=== PATIENT | female | born 1940 | race African-American/Black ===

== ENCOUNTER 2016-07-12 11:24 | Emergency (ER) | payer MEDICARE, OTHER ==
[~2016-07-12] VITALS: Ht 165.1 cm; Wt 92.1 kg
[2016-07-12 11:37] VITALS: BP 145/82
[2016-07-12] MEDS ORDERED: ACETAMINOPHEN 325 MG TABLET. PO ONE (12:00)
[2016-07-12] MEDS ORDERED: AMOX1TAB61 PO (12:33)
--- NOTE | 2016-07-12 12:33 | PHYS DOC ---
Past Medical History Past Medical History: A-Fib, Diabetes-Type II, Hypertension Past Surgical History: Hysterectomy Alcohol Use: None Drug Use: None Adult General Chief Complaint Chief Complaint: EYE PROBLEMS HPI HPI Patient is a 75 year old female presents emergency department stating that she has had sinus pressure frontal and maxillary for the last 3 days. She also states that she is having some eye pain and discomfort with this. She states this is her normal symptoms when she has a sinus infection. She states that she had an infection approximately one month ago was placed on amoxicillin. Currently has a fever here in the emergency department of 101.7. She denies any nausea vomiting cough or congestion. Review of Systems Review of Systems Constitutional: fever Eyes: Denies change in visual acuity, redness, or eye pain [] HENT: nasal congestion, sinus pressure denies sore throat [] Respiratory: Denies cough or shortness of breath [] Cardiovascular: No additional information not addressed in HPI [] GI: Denies abdominal pain, nausea, vomiting, bloody stools or diarrhea [] : Denies dysuria or hematuria [] Musculoskeletal: Denies back pain or joint pain [] Integument: Denies rash or skin lesions [] Neurologic: Denies headache, focal weakness or sensory changes [] Endocrine: Denies polyuria or polydipsia [] Current Medications Current Medications Current Medications Medications (Trade) Dose Ordered Sig/Ren Start Time Stop Time Status Last Admin Dose Admin Acetaminophen (Tylenol) 650 mg 1X ONCE 07/12/16 12:00 07/12/16 12:01 DC 07/12/16 11:54 650 MG Allergies Allergies Allergies Coded Allergies Type Severity Reaction Last Updated Verified No Known Drug Allergies 11/08/15 No Physical Exam Physical Exam Constitutional: Well developed, well nourished, no acute distress, non-toxic appearance. [] HENT: Normocephalic, atraumatic, bilateral external ears normal, oropharynx moist, no oral exudates, nose normal. Bilateral tympanic membranes appear to be normal. Throat with no erythematous no redness or drainage noted. A shunt with bilateral frontal and maxillary sinus tenderness. Nares appears to be inflamed. Eyes: PERRLA, EOMI, conjunctiva normal, no discharge. [] Neck: Normal range of motion, no tenderness, supple, no stridor. [] Cardiovascular:Heart rate regular rhythm, no murmur [] Lungs & Thorax: Bilateral breath sounds clear to auscultation [] Skin: Warm, dry, no erythema, no rash. [] Back: No tenderness Extremities: No tenderness, no cyanosis, no clubbing, ROM intact, no edema. [] Neurologic: Alert and oriented X 3, normal motor function, normal sensory function, no focal deficits noted. [] Psychologic: Affect normal, judgement normal, mood normal. [] Current Patient Data Vital Signs Vital Signs Date Time Temp Pulse Resp B/P (MAP) Pulse Ox O2 Delivery O2 Flow Rate FiO2 07/12/16 11:37 101.7 106 20 94 Room Air 101.7 EKG EKG [] Radiology/Procedures Radiology/Procedures [] Course & Med Decision Making Course & Med Decision Making Pertinent Labs and Imaging studies reviewed. (See chart for details) Patient was encouraged to continue taking her Coricidin HBP for sinus congestion. She'll be placed on Augmentin. Also recommended patient to follow up with ENT if she continues to have sinus pressure and discomfort as this is her second one within the last 2 months. Patient will be discharged home in stable condition. Signs symptoms to return back to emergency department as been provided. [] Dragon Disclaimer Dragon Disclaimer This electronic medical record was generated, in whole or in part, using a voice recognition dictation system. Departure Departure Impression: Primary Impression: Sinusitis Disposition: 01 HOME, SELF-CARE Condition: STABLE Referrals: JAKOB ESPINOZA MD (PCP) Patient Instructions: Sinusitis, [id number] Additional Instructions: Activity as tolerated. Tylenol for fever chills or generalized body aches and discomfort. May also use ibuprofen. Continue using the Coricidin HBP Antibiotics as prescribed. He may also use saline nasal sprays to help with her sinus pressure and discomfort. Follow-up with ENT if he continued have sinus pressure and pain. Return back to emergency prior signs symptoms of become worse. Scripts Amoxicillin/Potassium Clav (AUGMENTIN 875-125 TABLET) 1 Each Tablet 1 TAB PO BID, #20 TAB Prov: ELIDA GRAHAM APRN 07/12/16 ELIDA GRAHAM APRN July 12, 2016 12:33
== END 2016-07-12 12:43 | disposition home or self-care (01) ==
LOC: ER 11:24
DX: J32.1 Chronic frontal sinusitis (principal); J32.0 Chronic maxillary sinusitis; E11.9 Type 2 diabetes mellitus without complications; I10 Essential (primary) hypertension; I48.91 Unspecified atrial fibrillation
CPT/HCPCS: 99283

== ENCOUNTER → 2016-08-15 | Outpatient (CLI) | payer OTHER ==
[~2016-08-15] MED LIST: AMOX1TAB61 PO
--- NOTE | 2016-08-15 10:09 | RAD ---
DATE: 08/15/2016. EXAM: DIGITAL SCREEN BILAT W/CAD HISTORY: Routine screening. COMPARISON: 08/14/2015. This study was interpreted with the benefit of Computerized Aided Detection (CAD). FINDINGS: The breasts are primarily involutional. No dominant mass or malignant appearing microcalcifications are seen. The axillae are unremarkable. Breast Density: FATTY The breast parenchyma is primarily fatty replaced. Breast parenchyma level density A. IMPRESSION: No mammographic features suspicious for malignancy are identified. BI-RADS CATEGORY: 1 NEGATIVE RECOMMENDED FOLLOW-UP: 12M 12 MONTH FOLLOW-UP PQRS compliance statement: Patient information was entered into a reminder system with a target due date 08/15/2017. for the next mammogram. Mammography is a sensitive method for finding small breast cancers, but it does not detect them all and is not a substitute for careful clinical examination. A negative mammogram does not negate a clinically suspicious finding and should not result in delay in biopsying a clinically suspicious abnormality. "Our facility is accredited by the [employer] Mammography Program."
== END | disposition home or self-care (01) ==
LOC: MAMMO 09:45
PROVIDERS: ATTEND Family Medicine
DX: Z12.31 Encounter for screening mammogram for malignant neoplasm of breast (principal)
CPT/HCPCS: G0202; 77067

== ENCOUNTER 2016-09-19 15:58 | Emergency (ER) | payer OTHER ==
[~2016-09-19] VITALS: Ht 165.1 cm; Wt 91.6 kg
[2016-09-19 17:40] LABS: BILIRUBIN,URINE NEGATIVE (NEG); GLUCOSE,URINE NEGATIVE (NEG); NITRITE,URINE NEGATIVE (NEG); PH,URINE 5.5; PROTEIN,URINE NEGATIVE (NEG-TRACE); UROBILINOGEN,URINE 0.2 mg/dL (0.2 mg/dL)
[2016-09-19 17:58] LABS: BACTERIA,URINE 0 /HPF (0-FEW); RBC,URINE 0 /HPF (0-2); WBC,URINE OCC /HPF (0-4)
[2016-09-19 17:59] LABS: SQUAMOUS EPITHELIAL CELL,UR OCC /LPF
[2016-09-19 19:11] VITALS: BP 128/75
--- NOTE | 2016-09-19 20:57 | ED.ADGEN ---
Past Medical History Past Medical History: A-Fib, Diabetes-Type II, GERD, Hypertension, Other Additional Past Medical Histor: sinus Past Surgical History: Hysterectomy, Other Additional Past Surgical Histo: partial thyroidectomy Alcohol Use: None Drug Use: None Adult General Chief Complaint Chief Complaint: ABDOMINAL PAIN HPI HPI Patient is a 76 year old -[place] female presents with nasal congestion , sinus pain and tenderness, or midline lower abdominal pain with cramping. Patient has history of seasonal allergies and takes Sonal daily. She despite taking Sonal, she reports watery eyes, puffiness, nasal congestion rhinorrhea and fullness behind ears. Patient denies headache, change of vision,, confusion , nausea vomiting, or any focal neurologic deficits. Facial pain is worse with palpation. Patient also reports chronic constipation with cramping. States cramping similar to prior episodes in her bowel movements have been small and irregular. Patient is concerned that possible urinary tract infection. Denies flank pain, urinary frequency urgency or dysuria. No fever chills or sweats. No other acute symptoms or complaints. Review of Systems Review of Systems Review symptoms as per history of present illness. All other review symptoms are negative. Allergies Allergies Allergies Coded Allergies Type Severity Reaction Last Updated Verified No Known Drug Allergies 11/08/15 No Physical Exam Physical Exam Constitutional: Well developed, well nourished, no acute distress, non-toxic appearance. [] HENT: Normocephalic, atraumatic, bilateral external ears normal, oropharynx moist, no oral exudates, nose normal. [] Eyes: PERRLA, EOMI, conjunctiva normal, no discharge. [] Neck: Normal range of motion, no tenderness, supple, no stridor. [] Cardiovascular:Heart rate regular rhythm, no murmur [] Lungs & Thorax: Bilateral breath sounds clear to auscultation [] Abdomen: Bowel sounds normal, soft, no tenderness, no masses, no pulsatile masses. [] Skin: Warm, dry, no erythema, no rash. [] Back: No tenderness, no CVA tenderness. [] Extremities: No tenderness, no cyanosis, no clubbing, ROM intact, no edema. [] Neurologic: Alert and oriented X 3, normal motor function, normal sensory function, no focal deficits noted. [] Psychologic: Affect normal, judgement normal, mood normal. [] Current Patient Data Vital Signs Vital Signs Date Time Temp Pulse Resp B/P (MAP) Pulse Ox O2 Delivery O2 Flow Rate FiO2 09/19/16 19:11 80 128/75 (92) 09/19/16 18:41 96 09/19/16 16:41 Room Air 09/19/16 16:15 98.0 20 98.0 Lab Values Laboratory Tests Test 09/19/16 16:10 Urine Color Yellow Urine Clarity Clear Urine pH 5.5 Urine Specific [place] 1.020 Urine Protein Negative mg/dL (NEG-TRACE) Urine Glucose (UA) Negative mg/dL (NEG) Urine Ketones (Stick) Negative mg/dL (NEG) Urine Blood Negative (NEG) Urine Nitrite Negative (NEG) Urine Bilirubin Negative (NEG) Urine Urobilinogen Dipstick 0.2 mg/dL (0.2 mg/dL) Urine Leukocyte Esterase Negative (NEG) Urine RBC 0 /HPF (0-2) Urine WBC Occ /HPF (0-4) Urine Squamous Epithelial Cells Occ /LPF Urine Bacteria 0 /HPF (0-FEW) Urine Mucus Mod /LPF EKG EKG [] Radiology/Procedures Radiology/Procedures [] Course & Med Decision Making Course & Med Decision Making Pertinent Labs and Imaging studies reviewed. (See chart for details) [Was sitting on this with sinus congestion tenderness. Lower abdominal pain without tenderness. Main stress soft nontender throughout ED stay. UA is negative. Will treat for sinus resumed sinus infection with instructions to crease daily laxatives and follow up with patient's PCP . Return precautions reviewed. Patient verbalizes understanding agreement discharge instructions prior to discharge. Dragon Disclaimer Dragon Disclaimer This electronic medical record was generated, in whole or in part, using a voice recognition dictation system. LOBO GOMEZ DO Sep 19, 2016 20:57
== END 2016-09-19 19:10 | disposition home or self-care (01) ==
LOC: ER 15:58
DX: R10.30 Lower abdominal pain, unspecified (principal); R09.81 Nasal congestion; J34.89 Other specified disorders of nose and nasal sinuses; I48.91 Unspecified atrial fibrillation; E11.9 Type 2 diabetes mellitus without complications; K21.9 Gastro-esophageal reflux disease without esophagitis; I10 Essential (primary) hypertension; E89.0 Postprocedural hypothyroidism; Z90.710 Acquired absence of both cervix and uterus
CPT/HCPCS: 81001; 99284

== ENCOUNTER → 2017-03-28 | Outpatient (CLI) | payer OTHER | END | disposition home or self-care (01) | LOC: KCIC MRI 09:43 | DX: T15.90XA Foreign body on external eye, part unspecified, unspecified eye, initial encounter (principal); M47.896 Other spondylosis, lumbar region; M48.061 Spinal stenosis, lumbar region without neurogenic claudication | CPT/HCPCS: 70030; 72148 ==

== ENCOUNTER 2017-05-01 11:56 | Emergency (ER) | payer OTHER ==
[2017-05-01] MEDS ORDERED: MORPHINE SULFATE 4 MG/ML DISP.SYRIN. IV/SQ (12:30)
[2017-05-01 12:56] LABS: BILIRUBIN,URINE NEGATIVE (NEG); CLARITY,URINE CLEAR; COLOR,URINE YELLOW; GLUCOSE,URINE 250 mg/dL (NEG); NITRITE,URINE NEGATIVE (NEG); PH,URINE 5.5; PROTEIN,URINE NEGATIVE (NEG-TRACE)
[2017-05-01 12:58] LABS: AMPHETAMINE/METHAMPHETAMINE NEG (NEG); BARBITURATES NEG (NEG); BENZODIAZEPINES POS (NEG); CANNABINOIDS NEG (NEG); COCAINE NEG (NEG); METHADONE NEG (NEG); OPIATES NEG (NEG); PHENCYCLIDINE NEG (NEG)
[2017-05-01 12:59] LABS: ADD MAN DIFF? NO; ETHANOL, URINE NEG (NEG)
[2017-05-01] MEDS: IV NORMAL SALINE 1000ML BAG 1,000 ML IV (13:09)
[2017-05-01 13:10] LABS: BASO # 0.1 x10^3/uL (0.0-0.2); BASO % 1 % (0-3); EOS # 0.1 x10^3/uL (0.0-0.7); EOS % 2 % (0-3); HEMATOCRIT 39.8 % (36.0-47.0); HEMOGLOBIN 13.2 g/dL (12.0-15.5); LYMPH # 2.3 x10^3/uL (1.0-4.8); LYMPH % 32 % (24-48); MEAN CORPUSCULAR HEMOGLOBIN 28 pg (25-35); MEAN CORPUSCULAR HGB CONC 33 g/dL (31-37); MEAN CORPUSCULAR VOLUME 83 fL (79-100); MONO # 0.6 x10^3/uL (0.0-1.1); MONO % 8 % (0-9); NEUT # 3.9 x10^3uL (1.8-7.7); NEUT % 56 % (31-73); PLATELET COUNT 270 x10^3/uL (140-400); RED BLOOD COUNT 4.78 x10^6/uL (3.50-5.40); RED CELL DISTRIBUTION WIDTH 14.6 % (11.5-14.5)
[2017-05-01 13:13] LABS: ANION GAP 7 (6-14); BLOOD UREA NITROGEN 14 mg/dL (7-20); CALCIUM 9.8 mg/dL (8.5-10.1); CARBON DIOXIDE 30 mmol/L (21-32); CHLORIDE 102 mmol/L (98-107); CREATININE 0.9 mg/dL (0.6-1.0); GFR 74.1; GLUCOSE 167 mg/dL (70-99); POTASSIUM 3.6 mmol/L (3.5-5.1); SODIUM 139 mmol/L (136-145)
[2017-05-01] MEDS: ONDANSETRON PF 4 MG/2 ML VIAL. IV (13:13)
[2017-05-01] MEDS: IOHEXOL 240 MG/ML 50ML VIAL. PO (13:15)
[2017-05-01] MEDS: IOHEXOL 300 MG/ML 100ML VIAL. IV (13:15)
[2017-05-01 13:18] LABS: BACTERIA,URINE 0 /HPF (0-FEW); HYALINE CASTS, URINE MODERATE /HPF; SQUAMOUS EPITHELIAL CELL,UR MOD /LPF
[2017-05-01 13:19] LABS: ALBUMIN 3.7 g/dL (3.4-5.0); ALK PHOS 151 U/L (46-116); ALT (SGPT) 24 U/L (14-59); AST (SGOT) 16 U/L (15-37); DIRECT BILIRUBIN 0.1 mg/dL (0.0-0.2); LIPASE 71 U/L (73-393); TOTAL BILIRUBIN 0.6 mg/dL (0.2-1.0)
[2017-05-01 13:21] LABS: INR 3.4 (0.8-1.1); PROTHROMBIN TIME PATIENT 33.2 SEC (11.7-14.0)
[2017-05-01 13:22] LABS: TROPONINI < 0.017 ng/mL (0.000-0.055)
[2017-05-01 13:27] LABS: NT-PRO BNP 43 pg/mL (0-124)
[2017-05-01 13:27] LABS: CKMB INDEX 0.5 % (0-4); CKMB MASS 0.6 ng/mL (0.0-3.6); CREATINE KINASE 110 U/L (26-192)
== END 2017-05-01 15:24 | disposition home or self-care (01) ==
LOC: ER 11:56
DX: R10.30 Lower abdominal pain, unspecified (principal); R11.0 Nausea; E11.9 Type 2 diabetes mellitus without complications; I10 Essential (primary) hypertension; I48.91 Unspecified atrial fibrillation; K21.9 Gastro-esophageal reflux disease without esophagitis; Z90.710 Acquired absence of both cervix and uterus
CPT/HCPCS: 36415; 74177; 80048; 80076; 80307; 81001; 82553; 83690; 83735; 83880; 84484; 85025; 85610; 87086; 93005; 96361; 96374; 99285-25; J2405; J7030; Q9966; Q9967

== ENCOUNTER 2017-08-18 15:26 | Emergency (ER) | payer OTHER | END 2017-08-18 16:32 | disposition home or self-care (01) | LOC: ER 16:32 | DX: J32.9 Chronic sinusitis, unspecified (principal); E11.9 Type 2 diabetes mellitus without complications; K21.9 Gastro-esophageal reflux disease without esophagitis; I10 Essential (primary) hypertension; I48.91 Unspecified atrial fibrillation | CPT/HCPCS: 99283 ==

== ENCOUNTER → 2017-08-21 | Outpatient (CLI) | payer OTHER | END | disposition home or self-care (01) | LOC: MAMMO 09:29 | DX: Z12.31 Encounter for screening mammogram for malignant neoplasm of breast (principal); I10 Essential (primary) hypertension; E11.9 Type 2 diabetes mellitus without complications; K21.9 Gastro-esophageal reflux disease without esophagitis | CPT/HCPCS: 77063; 77067 ==

== ENCOUNTER → 2017-09-01 | Outpatient (CLI) | payer OTHER | END | disposition home or self-care (01) | LOC: RAD 10:30 | DX: M17.11 Unilateral primary osteoarthritis, right knee (principal); M48.02 Spinal stenosis, cervical region; I70.0 Atherosclerosis of aorta; M19.012 Primary osteoarthritis, left shoulder; M19.011 Primary osteoarthritis, right shoulder; I10 Essential (primary) hypertension; E11.9 Type 2 diabetes mellitus without complications; J32.9 Chronic sinusitis, unspecified; K21.9 Gastro-esophageal reflux disease without esophagitis | CPT/HCPCS: 72050; 72100; 73030; 73562 ==

== ENCOUNTER 2018-02-05 12:40 | Emergency (ER) | payer OTHER ==
[~2018-02-05] VITALS: Ht 167.6 cm; Wt 93.4 kg
[~2018-02-05 12:40] MED LIST changes: +AMOX500C PO; +LEVO500T59 PO
[2018-02-05] MEDS ORDERED: ORPHENADRINE CITRATE 60 MG/2 ML VIAL. IV ONE (14:45)
[2018-02-05] MEDS ORDERED: ONDANSETRON PF 4 MG/2 ML VIAL. IV ONE (14:45)
[2018-02-05] MEDS ORDERED: fentaNYL PF VIAL 100 MCG/2 ML VIAL IV ONE (14:45)
[2018-02-05 15:02] LABS: BILIRUBIN,URINE NEGATIVE (NEG); CLARITY,URINE CLEAR; COLOR,URINE YELLOW; NITRITE,URINE NEGATIVE (NEG); PROTEIN,URINE NEGATIVE (NEG-TRACE); UROBILINOGEN,URINE 0.2 mg/dL (0.2 mg/dL)
[2018-02-05 15:15] LABS: BACTERIA,URINE 0 /HPF (0-FEW); RBC,URINE 0 /HPF (0-2); SQUAMOUS EPITHELIAL CELL,UR OCC /LPF; WBC,URINE 0 /HPF (0-4)
[2018-02-05 15:19] LABS: BASO % 1 % (0-3); EOS # 0.1 x10^3/uL (0.0-0.7); EOS % 2 % (0-3); HEMATOCRIT 38.3 % (36.0-47.0); HEMOGLOBIN 12.9 g/dL (12.0-15.5); LYMPH # 1.8 x10^3/uL (1.0-4.8); LYMPH % 34 % (24-48); MEAN CORPUSCULAR HEMOGLOBIN 29 pg (25-35); MEAN CORPUSCULAR HGB CONC 34 g/dL (31-37); MEAN CORPUSCULAR VOLUME 85 fL (79-100); MONO # 0.5 x10^3/uL (0.0-1.1); MONO % 9 % (0-9); NEUT % 55 % (31-73); PLATELET COUNT 248 x10^3/uL (140-400); RED BLOOD COUNT 4.49 x10^6/uL (3.50-5.40); RED CELL DISTRIBUTION WIDTH 13.5 % (11.5-14.5); WHITE BLOOD COUNT 5.5 x10^3/uL (4.0-11.0)
[2018-02-05 15:22] LABS: CALCIUM 10.4 mg/dL (8.5-10.1); CREATININE 0.9 mg/dL (0.6-1.0); GFR 73.9; POTASSIUM 3.8 mmol/L (3.5-5.1)
[2018-02-05 15:28] LABS: ALBUMIN 3.8 g/dL (3.4-5.0); TOTAL BILIRUBIN 0.7 mg/dL (0.2-1.0); TOTAL PROTEIN 7.8 g/dL (6.4-8.2)
--- NOTE | 2018-02-05 15:51 | PHYS DOC ---
Past Medical History Past Medical History: A-Fib, Diabetes-Type II, GERD, Hypertension, Other Additional Past Medical Histor: sinus Past Surgical History: Hysterectomy, Other Additional Past Surgical Histo: partial thyroidectomy Alcohol Use: None Drug Use: None Adult General Chief Complaint Chief Complaint: GENERALIZED BODY ACHES [facility] HPI Patient is a 77-year-old female who presents with complaint of sinus pressure, pain, congestion and purulent nasal drainage for the last several weeks. She indicates that she was just recently seen by her primary care doctor and was placed on plain amoxicillin but she states the symptoms are not improving. She states that also over the last few days she has been having pain in her upper back and neck. She rates that pain as being moderate. She denies any chest pain , shortness of breath or fever. She does admit to a cough, especially in the mornings. Review of Systems Review of Systems Constitutional: Denies fever or chills [] HENT: Complains of sinus congestion, pain and purulent nasal drainage [] Respiratory: Admits to cough without shortness of breath [] Cardiovascular: No additional information not addressed in HPI [] Musculoskeletal: [place] of back and neck pain [] Integument: Denies rash or skin lesions [] Neurologic: Denies headache, focal weakness or sensory changes [] All other systems were reviewed and found to be within normal limits, except as documented in this note. Current Medications Current Medications Current Medications Medications (Trade) Dose Ordered Sig/[facility] Start Time Stop Time Status Last Admin Dose Admin Fentanyl Citrate (Fentanyl 2ml Vial) 25 mcg 1X ONCE 02/05/18 14:45 02/05/18 14:47 DC 02/05/18 15:02 25 MCG Ondansetron HCl (Zofran) 4 mg 1X ONCE 02/05/18 14:45 02/05/18 14:47 DC 02/05/18 14:59 4 MG Orphenadrine Citrate (Norflex) 60 mg 1X ONCE 02/05/18 14:45 02/05/18 14:47 DC 02/05/18 15:00 60 MG Allergies Allergies Allergies Coded Allergies Type Severity Reaction Last Updated Verified No Known Drug Allergies 11/08/15 No Physical Exam Physical Exam Constitutional: Well developed, well nourished, no acute distress, non-toxic appearance. [] HENT: Normocephalic, atraumatic, bilateral external ears normal, oropharynx moist, bilateral maxillary sinuses are tender to palpation and percussion. [] Eyes: PERRLA, EOMI, conjunctiva normal, no discharge. [] Neck: Normal range of motion, no tenderness, supple. [] Cardiovascular: Regular rate and rhythm [] Lungs & Thorax: Bilateral breath sounds clear to auscultation [] Abdomen: Bowel sounds normal, soft, no tenderness. [] Skin: Warm, dry, no erythema, no rash. [] Back: There is tenderness to palpation with palpable spasm noted in the bilateral trapezius musculature as well as mid thoracic paraspinal musculature and rhomboids bilaterally. [] Extremities: No tenderness, no cyanosis, no clubbing, ROM intact, no edema. [] Neurologic: Alert and oriented X 3, normal motor function, normal sensory function, no focal deficits noted. [] Current Patient Data Vital Signs Vital Signs Date Time Temp Pulse Resp B/P (MAP) Pulse Ox O2 Delivery O2 Flow Rate FiO2 02/05/18 15:02 20 97 Room Air 02/05/18 13:20 98.1 92 183/101 (128) 98.1 Lab Values Laboratory Tests Test 02/05/18 13:52 02/05/18 14:55 Urine Collection Type Unknown Urine Color Yellow Urine Clarity Clear Urine pH 6.0 Urine Specific [place] 1.010 Urine Protein Negative mg/dL (NEG-TRACE) Urine Glucose (UA) Negative mg/dL (NEG) Urine Ketones (Stick) Negative mg/dL (NEG) Urine Blood Negative (NEG) Urine Nitrite Negative (NEG) Urine Bilirubin Negative (NEG) Urine Urobilinogen Dipstick 0.2 mg/dL (0.2 mg/dL) Urine Leukocyte Esterase Negative (NEG) Urine RBC 0 /HPF (0-2) Urine WBC 0 /HPF (0-4) Urine Squamous Epithelial Cells Occ /LPF Urine Bacteria 0 /HPF (0-FEW) Urine Mucus Slight /LPF White Blood Count 5.5 x10^3/uL (4.0-11.0) Red Blood Count 4.49 x10^6/uL (3.50-5.40) Hemoglobin 12.9 g/dL (12.0-15.5) Hematocrit 38.3 % (36.0-47.0) Mean Corpuscular Volume 85 fL (79-100) Mean Corpuscular Hemoglobin 29 pg (25-35) Mean Corpuscular Hemoglobin Concent 34 g/dL (31-37) Red Cell Distribution Width 13.5 % (11.5-14.5) Platelet Count 248 x10^3/uL (140-400) Neutrophils (%) (Auto) 55 % (31-73) Lymphocytes (%) (Auto) 34 % (24-48) Monocytes (%) (Auto) 9 % (0-9) Eosinophils (%) (Auto) 2 % (0-3) Basophils (%) (Auto) 1 % (0-3) Neutrophils # (Auto) 3.0 x10^3uL (1.8-7.7) Lymphocytes # (Auto) 1.8 x10^3/uL (1.0-4.8) Monocytes # (Auto) 0.5 x10^3/uL (0.0-1.1) Eosinophils # (Auto) 0.1 x10^3/uL (0.0-0.7) Basophils # (Auto) 0.0 x10^3/uL (0.0-0.2) Sodium Level 140 mmol/L (136-145) Potassium Level 3.8 mmol/L (3.5-5.1) Chloride Level 99 mmol/L (98-107) Carbon Dioxide Level 30 mmol/L (21-32) Anion Gap 11 (6-14) Blood Urea Nitrogen 10 mg/dL (7-20) Creatinine 0.9 mg/dL (0.6-1.0) Estimated GFR (Cockcroft-Gault) 73.9 BUN/Creatinine Ratio 11 (6-20) Glucose Level 129 mg/dL (70-99) H Calcium Level 10.4 mg/dL (8.5-10.1) H Total Bilirubin 0.7 mg/dL (0.2-1.0) Aspartate Amino Transferase (AST) 15 U/L (15-37) Alanine Aminotransferase (ALT) 25 U/L (14-59) Alkaline Phosphatase 127 U/L (46-116) H Total Protein 7.8 g/dL (6.4-8.2) Albumin 3.8 g/dL (3.4-5.0) Albumin/Globulin Ratio 1.0 (1.0-1.7) Laboratory Tests 02/05/18 14:55 Laboratory Tests 02/05/18 14:55 EKG EKG [] Radiology/Procedures Radiology/Procedures [] Course & Med Decision Making Course & Med Decision Making Pertinent Labs and Imaging studies reviewed. (See chart for details) [] Dragon Disclaimer Dragon Disclaimer This electronic medical record was generated, in whole or in part, using a voice recognition dictation system. Departure Departure Impression: Primary Impression: Sinusitis, maxillary, chronic Additional Impressions: Back pain Muscle spasm of back Disposition: 01 HOME, SELF-CARE Condition: STABLE Referrals: JAKOB ESPINOZA MD (PCP) Patient Instructions: Back Pain, Adult, Sinusitis Scripts Amoxicillin/Potassium Clav (AUGMENTIN 875-125 TABLET) 1 Each Tablet 1 TAB PO BID, #42 TAB Prov: DEBBY WHITMORE Jr. DO 02/05/18 Tramadol Hcl (TRAMADOL HCL) 50 Mg Tablet 50 MG PO Q6HRS PRN for PAIN, #12 TAB Prov: DEBBY WHITMORE Jr. DO 02/05/18 Orphenadrine Citrate (ORPHENADRINE CITRATE) 100 Mg Tablet.er 1 TAB PO BID PRN for MUSCLE SPASMS, #14 TAB Prov: DEBBY WHITMORE Jr. DO 02/05/18 Problem Qualifiers Additional Impressions: Back pain Back pain location: low back pain Chronicity: unspecified Back pain laterality: bilateral Sciatica presence: unspecified whether sciatica present Qualified Codes: M54.5 - Low back pain DEBBY WHITMORE Jr. DO Feb 05, 2018 15:51
[2018-02-05] MEDS ORDERED: AMOX1TAB61 PO (15:59)
[2018-02-05] MEDS ORDERED: TRAM50TA PO (15:59)
[2018-02-05] MEDS ORDERED: ORPH100T PO (15:59)
[2018-02-05 16:20] VITALS: BP 145/73
--- NOTE | 2018-02-05 16:31 | EKG ---
[facility] [address] [place] [address] Test Date: 2018-02-05 Test Time: 14:40:01 Pat Name: TAMEKA EVANS Department: Room: Gender: F Police Liaison: : 1940 Requested By: DEBBY WHITMORE Order Number: [id number] Reading MD: Measurements Intervals [place] Rate: 78 P: 51 [place]: 166 QRS: 14 QRSD: 92 T: 22 QT: 364 QTc: 418 Interpretive Statements SINUS RHYTHM QRS(T) CONTOUR ABNORMALITY CONSIDER ANTEROSEPTAL MYOCARDIAL DAMAGE POSSIBLY ABNORMAL ECG RI6.01 No previous ECG available for comparison
== END 2018-02-05 16:41 | disposition home or self-care (01) ==
LOC: ER 12:40
DX: J32.0 Chronic maxillary sinusitis (principal); M62.830 Muscle spasm of back; M54.5 Low back pain; M54.2 Cervicalgia; I48.91 Unspecified atrial fibrillation; K21.9 Gastro-esophageal reflux disease without esophagitis; I10 Essential (primary) hypertension; E11.9 Type 2 diabetes mellitus without complications; Z90.710 Acquired absence of both cervix and uterus; E89.0 Postprocedural hypothyroidism
CPT/HCPCS: 36415; 80053; 81001; 85025; 93005; 96374; 96375; 99284; J2360; J2405; J3010

== ENCOUNTER → 2018-09-03 | Outpatient (CLI) | payer OTHER ==
[~2018-09-03] MED LIST changes: +ORPH100T PO; +TRAM50TA PO
--- NOTE | 2018-09-03 13:33 | RAD ---
DATE: 09/03/2018. EXAM: MAMMO AG SCREENING BILATERAL HISTORY: Routine screening. COMPARISON: Previous mammogram from 2018 and 2017. This study was interpreted with the benefit of Computerized Aided Detection (CAD). FINDINGS: Breast Density: FATTY The Breast Parenchyma is primarily fatty replaced. Breast parenchyma level density A.. The skin and nipples are within normal limits. No suspicious calcifications, spiculated mass or area of architectural distortion. IMPRESSION: No mammographic evidence of malignancy. Stable mammogram. BI-RADS CATEGORY: 2 BENIGN FINDING(S) RECOMMENDED FOLLOW-UP: 12M 12 MONTH FOLLOW-UP PQRS compliance statement: Patient information was entered into a reminder system with a target due date for the next mammogram. Mammography is a sensitive method for finding small breast cancers, but it does not detect them all and is not a substitute for careful clinical examination. A negative mammogram does not negate a clinically suspicious finding and should not result in delay in biopsying a clinically suspicious abnormality. "Our facility is accredited by the [employer] Mammography Program."
== END | disposition home or self-care (01) ==
LOC: MAMMO 09:54
PROVIDERS: ATTEND Family Medicine
DX: Z12.31 Encounter for screening mammogram for malignant neoplasm of breast (principal)
CPT/HCPCS: 77063; 77067

== ENCOUNTER → 2019-09-06 | Outpatient (CLI) | payer MEDICARE ==
--- NOTE | 2019-09-06 15:51 | RAD ---
EXAM: BILATERAL DIGITAL 3D SCREENING MAMMOGRAPHY. HISTORY: Routine mammographic screening. TECHNIQUE: Bilateral digital 3D and tomographic images were obtained in CC and MLO projections. Computer-aided detection was applied. COMPARISON: 09/03/2018. COMPOSITION: A. The breasts are almost entirely fatty. FINDINGS: There are no suspicious masses, microcalcifications or architectural distortion. The parenchymal pattern is stable. Scattered calcifications are benign. BI-RADS CATEGORY 2: Benign. RECOMMENDATION: 1. Routine screening mammography in one year. If mammography demonstrates dense breast tissue (heterogenously dense or extremely dense, category C or D), which could hide abnormalities, and if other risk factors for breast cancer have been identified, supplemental screening tests that may be suggested by the ordering physician may be of benefit. Dense breast tissue, in and of itself, is a relatively common condition. Therefore, this information is not provided to cause undue concern, but rather to raise awareness and to promote discussion with the referring physician regarding the presence of other risk factors, in addition to dense breast tissue. The results of this mammography examination is provided to the patient and referring physician. The patient should contact their referring physician if any questions or concerns exist regarding this report. PQRS compliance statement - Patient information was entered into a reminder system with a target due date for the next mammogram. "Our facility is accredited by the [employer] Mammography Program." . Electronically signed by: Rubi Ramirez MD (09/06/2019 3:48 PM) [id number]
== END | disposition home or self-care (01) ==
LOC: MAMMO 10:33
PROVIDERS: ATTEND Family Medicine
DX: Z12.31 Encounter for screening mammogram for malignant neoplasm of breast (principal); N64.89 Other specified disorders of breast
CPT/HCPCS: 77063; 77067

== ENCOUNTER 2019-10-22 14:51 | Emergency (ER) | payer MEDICARE | END 2019-10-22 15:03 | LOC: ER 14:51 | DX: E16.2 Hypoglycemia, unspecified (principal); Z53.21 Procedure and treatment not carried out due to patient leaving prior to being seen by health care provider | CPT/HCPCS: 82962 ==

== ENCOUNTER → 2020-09-06 | Outpatient (CLI) | payer MEDICARE ==
--- NOTE | 2020-09-06 12:43 | RAD ---
DATE: 09/06/2020 EXAM: DIGITAL SCREEN BILAT W/CAD HISTORY: Screening COMPARISON: Prior exams dating back to 08/14/2015 This study was interpreted with the benefit of Computerized Aided Detection (CAD). Breast Density: FATTY The breast parenchyma is primarily fatty replaced. Breast parenchyma level density A. FINDINGS: No mass, suspicious calcification, or architectural distortion in either breast. IMPRESSION: No evidence of malignancy. BI-RADS CATEGORY: 1 NEGATIVE RECOMMENDED FOLLOW-UP: 12M 12 MONTH FOLLOW-UP PQRS compliance statement: Patient information was entered into a reminder system with a target due date for the next mammogram. Mammography is a sensitive method for finding small breast cancers, but it does not detect them all and is not a substitute for careful clinical examination. A negative mammogram does not negate a clinically suspicious finding and should not result in delay in biopsying a clinically suspicious abnormality. "Our facility is accredited by the [employer] Mammography Program."
== END ==
LOC: MAMMO 10:31
PROVIDERS: ATTEND Family Medicine
DX: Z12.31 Encounter for screening mammogram for malignant neoplasm of breast (principal)
CPT/HCPCS: 77067

== ENCOUNTER 2021-07-11 10:06 | Emergency (ER) | payer BC, MEDICARE ==
[~2021-07-11] VITALS: Ht 167.6 cm; Wt 94.0 kg
[2021-07-11 10:25] VITALS: BP 155/85
[2021-07-11] MEDS ORDERED: KETOROLAC 60 MG/2 ML VIAL. IM ONE (11:00)
--- NOTE | 2021-07-11 11:09 | PHYS DOC ---
Past Medical History Past Medical History: A-Fib, Diabetes-Type II, GERD, Hypertension, Other Additional Past Medical Histor: sinus (KVNG PORTILLO APRN) Past Surgical History: Hysterectomy, Other Additional Past Surgical Histo: partial thyroidectomy (KVNG PORTILLO APRN) Smoking Status: Former Smoker Alcohol Use: None Drug Use: None (KVNG PORTILLO APRN) General Adult EDM: Chief Complaint: BACK PAIN OR INJURY HPI: HPI: Patient is a 80-year-old female who presents today with right-sided back pain. Patient states that 1 week ago she was getting out of bed to go to the restroom, she states her feet got tangled up in her comforter, she fell to her knees and then fell to her stomach and then her back, she said that since that time she has had low back issues and comes today because the pain is unbearable. Patient states she also is having abdominal pain but she has had that for years, she said that she had a liver nodule removed in December 2020 she said that came out fine she states she has had gastrointestinal issues and is currently seeking treatment out through her primary care physician for those. Patient denies hitting her head during the fall last week, she said she has been ambulating okay she said just the pain in her right hip area and right back area is causing her difficulties. Patient denies loss of bowel or bladder control or diffi culties voiding or defecating. (KVNG PORTILLO ADDING MACHINE SERVICER) Review of Systems: Review of Systems: Constitutional: Denies fever or chills. [] Eyes: Denies change in visual acuity. [] HENT: Denies nasal congestion or sore throat. [] Respiratory: Denies cough or shortness of breath. [] Cardiovascular: Denies chest pain or edema. [] GI: Denies abdominal pain, nausea, vomiting, bloody stools or diarrhea. [] : Denies dysuria. [] Musculoskeletal: right back pain Integument: Denies rash. [] Neurologic: Denies headache, focal weakness or sensory changes. [] Endocrine: Denies polyuria or polydipsia. [] Lymphatic: Denies swollen glands. [] Psychiatric: Denies depression or anxiety. [] (KVNG PORTILLO ADDING MACHINE SERVICER) Heart Score: C/O Chest Pain: No Risk Factors: Risk Factors: DM, Current or recent (<one month) smoker, HTN, HLP, family history of CAD, obesity. Risk Scores: Score 0 - 3: 2.5% MACE over next 6 weeks - Discharge Home Score 4 - 6: 20.3% MACE over next 6 weeks - Admit for Clinical Observation Score 7 - 10: 72.7% MACE over next 6 weeks - Early Invasive Strategies (KVNG PORTILLO APRN) Allergies: Allergies: Allergies Coded Allergies Type Severity Reaction Last Updated Verified No Known Drug Allergies 11/08/15 No (KVNG PORTILLO APRN) Physical Exam: PE: Constitutional: Well developed, well nourished, no acute distress, non-toxic appearance. [] HENT: Normocephalic, atraumatic, bilateral external ears normal, oropharynx mo ist, no oral exudates, nose normal. [] Eyes: PERRLA, EOMI, conjunctiva normal, no discharge. [] Neck: Normal range of motion, no tenderness, supple, no stridor. [] Cardiovascular:Heart rate regular rhythm, no murmur [] Lungs & Thorax: Bilateral breath sounds clear to auscultation [] Abdomen: Bowel sounds normal, soft, no tenderness, no masses, no pulsatile masses. [] Skin: Warm, dry, no erythema, no rash. [] Back: No tenderness, no CVA tenderness. [] Extremities: No tenderness, no cyanosis, no clubbing, ROM intact, no edema. [] Neurologic: Alert and oriented X 3, normal motor function, normal sensory function, no focal deficits noted. [] Psychologic: Affect normal, judgement normal, mood normal. [] (KVNG PORTILLO ADDING MACHINE SERVICER) Current Patient Data: Vital Signs: Vital Signs Date Time Temp Pulse Resp B/P (MAP) Pulse Ox O2 Delivery O2 Flow Rate FiO2 07/11/21 10:25 98.5 88 16 155/85 (108) 98 Room Air 98.5 Vital Signs Date Time Temp Pulse Resp B/P (MAP) Pulse Ox O2 Delivery O2 Flow Rate FiO2 07/11/21 10:25 98.5 88 16 155/85 (108) 98 Room Air 98.5 (KVNG PORTILLO ADDING MACHINE SERVICER) EKG: EKG: [] (KVNG PORTILLO APRN) Radiology/Procedures: Radiology/Procedures: [REASON: fall with low back pain PROCEDURE: CT LUMBAR SPINE WO CONTRAST CT LUMBAR SPINE WO History:Reason: fall with low back pain / Spl. Instructions: / History: Technique: Noncontrast CT was performed of the lumbar spine. Multiplanar reconstructions were performed. Exposure: One or more of the following individualized dose reduction techniques were utilized for this examination: 1. Automated exposure control 2. Adjustment of the mA and/or kV according to patient size 3. Use of iterative reconstruction technique. Comparison: None Findings: Acute L1 superior endplate compression fracture with mild 10 percent height loss. Minimal retropulsion. No significant canal narrowing. Normal alignment. Degenerative endplate changes most prominent L4-5. T12-L1: No canal or neuroforaminal narrowing. L1-L2: No canal or neuroforaminal narrowing. L2-L3: Small disc bulge. Mild facet arthropathy. No canal or neuroforaminal narrowing. L3-L4: Broad-based disc bulge. Mild canal narrowing. Subarticular recess narrowing. Moderate facet arthropathy. Ligament of flavum thickening. Mild bilateral neuroforaminal narrowing. L4-L5: Vacuum disc phenomenon. Broad-based disc bulge. Moderate canal narro wing. Moderate facet arthropathy. Ligamentum flavum thickening. Subarticular recess narrowing. Moderate bilateral neuroforaminal narrowing. L5-S1: Small disc bulge. Mild canal narrowing. Subarticular recess narrowing. Advanced facet arthropathy. Mild bilateral neuroforaminal narrowing. Impression: 1. Acute mild L1 compression fracture. 2. Multilevel lumbar spondylosis most prominent L4-5. 3. L4-5 moderate canal narrowing. 4. Neuroforaminal narrowing most prominent L4-5. Electronically signed by: Kwabena Car DO (07/11/2021 11:54 AM) [id number]] (KVNG PORTILLO APRN) Course & Med Decision Making: Course & Med Decision Making Pertinent Labs and Imaging studies reviewed. (See chart for details) 12:[address] Varghese and spoke with their services regarding this patient's compression fracture, they state that it is not severe enough to treat at this time, but they did make recommendations for the patient to follow-up with Dr. Bach who is the rehabilitation physician for further evaluation and management. 1220 I spoke to patient regarding radiological findings and did inform her that she had a compression fracture of her L1, I did inform her that I spoke with neurosurgery and they recommended that she follow-up with a rehabilitation physician Dr. Mcneal for further evaluation and management of this compression fracture. Patient is to return here to the emergency department should she have any loss of bowel or bladder control, or inability to start her stream or defecate. (KVNG PORTILLO APRN) [place] Disclaimer: Sharmaine Disclaimer: This electronic medical record was generated, in whole or in part, using a voice recognition dictation system. (KVNG PORTILLO APRN) Departure Departure Impression: Primary Impression: Fall Qualified Codes: W19.XXXA - Unspecified fall, initial encounter Additional Impression: Compression fracture of L1 vertebra Qualified Codes: S32.010A - Wedge compression fracture of first lumbar vertebra, initial encounter for closed fracture Disposition: HOME / SELF CARE / HOMELESS Condition: STABLE Referrals: JAKOB ESPINOZA MD (PCP) LEODAN BACH MD Patient Instructions: Back, Compression Fracture Additional Instructions: Hydrocodone take 1 tablet every 6 hours as needed for severe pain, use with caution this may cause drowsiness and constipation Continue to use your Metamucil as needed for bowel management, should you become constipated use the MiraLAX Follow-up with Dr. Bach or your primary care physician this week for further evaluation and management of your compression fractures Return to the emergency department should you have loss of bowel or bladder control, inability to void or defecate, increased back pain any numbness or ting ling in your legs Scripts Hydrocodone Bit/Acetaminophen (HYDROCODONE-APAP 5-325 ) 1 Tab Tablet 1 TAB PO PRN Q6HRS PRN for PAIN, #15 TAB 0 Refills Prov: KVNG PORTILLO ADDING MACHINE SERVICER 07/11/21 Attending Signature I have participated in the care of this patient and I have reviewed and agree with all pertinent clinical information above including history, exam, and recommendations. (MALGORZATA GOMEZ DO) KVNG PORTILLO APRN July 11, 2021 11:08 MALGORZATA GOMEZ DO July 11, 2021 15:27
--- NOTE | 2021-07-11 11:57 | RAD ---
CT LUMBAR SPINE WO History:Reason: fall with low back pain / Spl. Instructions: / History: Technique: Noncontrast CT was performed of the lumbar spine. Multiplanar reconstructions were perform ed. Exposure: One or more of the following individualized dose reduction techniques were utilized for thi s examination: 1. Automated exposure control 2. Adjustment of the mA and/or kV according to patient size 3. Use of iterative reconstruction technique. Comparison: None Findings: Acute L1 superior endplate compression fracture with mild 10 percent height loss. Minimal retropulsio n. No significant canal narrowing. Normal alignment. Degenerative endplate changes most prominent L4-5. T12-L1: No canal or neuroforaminal narrowing. L1-L2: No canal or neuroforaminal narrowing. L2-L3: Small disc bulge. Mild facet arthropathy. No canal or neuroforaminal narrowing. L3-L4: Broad-based disc bulge. Mild canal narrowing. Subarticular recess narrowing. Moderate facet a rthropathy. Ligament of flavum thickening. Mild bilateral neuroforaminal narrowing. L4-L5: Vacuum disc phenomenon. Broad-based disc bulge. Moderate canal narrowing. Moderate facet arth ropathy. Ligamentum flavum thickening. Subarticular recess narrowing. Moderate bilateral neuroforamin al narrowing. L5-S1: Small disc bulge. Mild canal narrowing. Subarticular recess narrowing. Advanced facet arthrop athy. Mild bilateral neuroforaminal narrowing. Impression: 1. Acute mild L1 compression fracture. 2. Multilevel lumbar spondylosis most prominent L4-5. 3. L4-5 moderate canal narrowing. 4. Neuroforaminal narrowing most prominent L4-5. Electronically signed by: Kwabena Cra DO (07/11/2021 11:54 AM) [id number]
[2021-07-11] MEDS ORDERED: HYDR-2761 PO (12:37)
== END 2021-07-11 12:52 | disposition home or self-care (01) ==
LOC: ER 10:06
DX: S32.010A Wedge compression fracture of first lumbar vertebra, initial encounter for closed fracture (principal); I48.91 Unspecified atrial fibrillation; M54.50 Low back pain, unspecified; E11.9 Type 2 diabetes mellitus without complications; K21.9 Gastro-esophageal reflux disease without esophagitis; I10 Essential (primary) hypertension; Z87.891 Personal history of nicotine dependence; Z90.710 Acquired absence of both cervix and uterus; G89.11 Acute pain due to trauma; W18.39XA Other fall on same level, initial encounter; Y93.89 Activity, other specified; Y92.89 Other specified places as the place of occurrence of the external cause; Y99.8 Other external cause status
CPT/HCPCS: 72131; 96372; 99284; J1885